=== PATIENT | female | born 1960 | race Caucasian/White ===

== ENCOUNTER 2017-10-21 12:50 | Inpatient (IN) | payer OTHER ==
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
[2017-10-21] MEDS ORDERED: IBUPROFEN 600 MG TAB PO ONE ×2 (16:15→16:18)
[2017-10-21 16:26] LABS: PLATELET COUNT 327 10^3/uL (150-400)
[2017-10-21] MEDS ORDERED: ONDANSETRON 4 MG/2 ML VIAL IVP PRN (16:34)
[2017-10-21] MEDS ORDERED: HYDROCODONE/APAP 5/325 TAB PO PRN (16:34)
[2017-10-21] MEDS ORDERED: ACETAMINOPHEN 325 MG TAB PO PRN (16:34)
[2017-10-21] MEDS ORDERED: NALOXONE HCL 0.4 MG/ML INJ IVP PRN (16:34)
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
[2017-10-21] MEDS: IBUPROFEN 600 MG TAB PO SCH (22:00)
[2017-10-21] MEDS: CALCIUM CARBONATE 500 MG CHEWABLE TAB PO SCH (22:05)
[2017-10-22 05:08] LABS: PLATELET COUNT 280 10^3/uL (150-400)
[2017-10-22] MEDS: IBUPROFEN 600 MG TAB PO SCH (06:36)
[2017-10-22] MEDS: CALCIUM CARBONATE 500 MG CHEWABLE TAB PO SCH (08:27)
[2017-10-22] MEDS ORDERED: DOCUSATE SODIUM 100 MG CAP PO SCH (09:00)
[2017-10-22] MEDS ORDERED: CHOLECALCIFEROL VIT D3 1,000 UNITS TAB PO SCH (09:00)
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
--- NOTE | 2017-10-22 10:47 | ASMTCMCOM ---
CM Note CM Note Notes: Spoke with PT who feels patient would benefit from an inpatient rehab stay. Patient has hx of TBI and states she wants to go home. I spoke with her who repeatedly declines CM at this time "the goal is to get her home and follow up with [place]." CM available should the family request assistance. Plan: DC to home when medically cleared for discharge. Date Signed: 10/22/2017 10:47 AM Electronically Signed By:Marisol Sol RN
[2017-10-22 12:06] VITALS: BP 126/91
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
[2017-10-26] MEDS ORDERED: ALENDRONATE SODIUM 70 MG TAB PO SCH (07:00)
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
== END 2017-10-22 14:56 | disposition home or self-care (01) | DRG 200 ==
LOC: OBSVTOIN 15:28 → F3N 16:31
PROVIDERS: ADMIT Surgery; ATTEND Surgery
DX: S27.0XXA Traumatic pneumothorax, initial encounter (principal); S22.42XA Multiple fractures of ribs, left side, initial encounter for closed fracture; S42.032A Displaced fracture of lateral end of left clavicle, initial encounter for closed fracture; V18.0XXA Pedal cycle driver injured in noncollision transport accident in nontraffic accident, initial encounter; Y93.55 Activity, bike riding; Y92.482 Bike path as the place of occurrence of the external cause; Z87.820 Personal history of traumatic brain injury
CPT/HCPCS: 97163-GP; 97165-GO; A4565; G8987-GO-CJ; G8988-GO-CI